=== PATIENT | male | born 1990 | race Caucasian/White ===

== ENCOUNTER 2017-01-29 12:35 | Emergency (ER) | payer BC ==
[2017-01-29 12:59] VITALS: BP 154/90
[2017-01-29] MEDS ORDERED: Penicillin V Potassium 500 MG Tab PO ONE (13:45)
[2017-01-29] MEDS ORDERED: Ketorolac 60 MG/2 ML SDV IM ONE (13:45)
--- NOTE | 2017-01-29 13:45 | EDM.PDOC ---
ED HPI GENERAL MEDICAL PROBLEM - General Chief Complaint: ENT Problem Stated Complaint: LEFT SIDE TOOTH PAIN POS INFECTION Time Seen by Provider: 01/29/17 13:25 Source of Information: Reports: Patient History Limitations: Reports: No Limitations - History of Present Illness INITIAL COMMENTS - FREE TEXT/NARRATIVE: Patient is a 26-year-old male who presents to the ED complaining of left upper tooth pain. Patient states approx. 2 days ago started having throbbing sensation to the affected tooth. States the tooth broke off approximately one month ago. States the discomfort is described as a throbbing sensation worsened with chewing, exposure to air, and hot/cold liquids. States he has been taking ibuprofen and Tylenol with no relief. He is seeing Dr. Wilkerson dentist and has plan for all his dental needs. They're aware of the fractured tooth and have a plan in place. There is no appointment scheduled since the patient has difficulty getting off of work.He denies any fever/chills, nausea/vomiting, swelling, or any additional complaints. Onset: Gradual Onset Date: 01/27/17 Duration: Constant, Getting Worse, Waxing/Waning Location: Reports: Other (mouth) Quality: Reports: Ache, Throbbing Severity: Moderate Improves with: Reports: None, Other (See HPI) Worsens with: Reports: Other (See HPI) Context: Reports: Other Associated Symptoms: Reports: No Other Symptoms Treatments [employer]ANT: Reports: Acetaminophen, NSAIDS Left Upper Oral/Mouth Pain Score (Numeric/FACES): 10 - Related Data Allergies Allergy/AdvReac Type Severity Reaction Status Date / Time No Known Allergies Allergy Verified 12/20/14 18:49 Home Meds: Home Meds Penicillin V Potassium 500 mg PO Q6HR #40 tab 01/29/17 [Rx] QUEtiapine Fumarate [Seroquel] 100 mg pe PO BID 01/29/17 [History] Sertraline HCl [Zoloft] 100 mg PO DAILY 01/29/17 [History] traMADol [Ultram] 50 mg PO Q6H PRN #5 tablet 01/29/17 [Rx] Past Medical History Psychiatric History: Reports: Anxiety, Depression - Past Surgical History HEENT Surgical History: Reports: Myringotomy w Tube(s) Other HEENT Surgeries/Procedures: wax build up in bilateral ears Social & Family History - Tobacco Use Smoking Status *Q: Current Every Day Smoker Years of Tobacco use: 10 Packs/Tins Daily: 1 - Caffeine Use Caffeine Use: Reports: None - Recreational Drug Use Recreational Drug Use: No Drug Use in Last 12 Months: Yes Recreational Drug Type: Reports: Marijuana/Hashish, Methamphetamine ED ROS ENT - Review of Systems Review Of Systems: ROS reveals no pertinent complaints other than HPI. ED EXAM, ENT - Physical Exam Exam: See Below Exam Limited By: No Limitations General Appearance: Alert, WD/WN, No Apparent Distress Ears: Normal Canal Nose: Normal Inspection Mouth/Throat: Normal Inspection, Normal Oropharynx, Other (significant dental decay throughout his mouth. Tooth affected is #16 tooth. Large filling present with part of the lateral aspect of the tooth fractured off. No swelling to the gum line noted. No swelling to the cheek noted. Increased pain with pressure to the tooth with a tongue depressor.) Head: Atraumatic, Normocephalic Neck: Normal Inspection, Supple, Non-Tender, Full Range of Motion Respiratory/Chest: No Respiratory Distress, Lungs Clear, Normal Breath Sounds, No Accessory Muscle Use, Chest Non-Tender Cardiovascular: Normal Peripheral Pulses, Regular Rate, Rhythm, No Murmur Extremities: Redness Neurological: Alert, Oriented, CN II-XII Intact, No Motor/Sensory Deficits Psychiatric: Normal Affect, Normal Mood Skin: Warm, Dry, Intact, Normal Color Course - Vital Signs Last Recorded V/S: Last Vital Signs Temp 98.7 F 01/29/17 12:55 Pulse 103 H 01/29/17 12:55 Resp 18 01/29/17 12:55 BP 154/90 H 01/29/17 12:55 Pulse Ox 100 01/29/17 12:55 - Orders/Labs/Meds Meds: Medications Discontinued Medications Generic Name Dose Route Start Last Admin Trade Name Freq PRN Reason Stop Dose Admin Ketorolac Tromethamine 60 mg 01/29/17 13:45 01/29/17 14:00 Toradol IM 01/29/17 13:46 Not Given ONETIME ONE Penicillin V Potassium 500 mg 01/29/17 13:45 01/29/17 14:00 Veetids PO 01/29/17 13:46 Not Given ONETIME ONE - Re-Assessments/Exams Free Text/Narrative Re-Assessment/Exam: Will perform posterior superior alveolar nerve block with bupuvicaine. Ordered toradol 60mg IM and pen vk 500mg PO. 1400 Patient refused nerve block, PCN, and toradol. States he has PCN at home from his dentist. This was not shared with me. Patient requests pain medications. Agreed to provide tramadol 50mg #5 tabs. He was instructed to call and make an appointment Dr. Wilkerson to be seen this week to provide definitive therapy. He was instructed that the does not provide narcotics on a regular basis for tooth pain. Understand he cannot get off work but narcotic medication medications are just a Band-Aid fix. Patient discharged home. Departure - Departure Time of Disposition: 14:01 Disposition: Home, Self-Care 01 Condition: good Clinical Impression: Pain due to dental caries - Discharge Information Prescriptions: Penicillin V Potassium 500 mg PO Q6HR #40 tab traMADol [Ultram] 50 mg PO Q6H PRN #5 tablet PRN Reason: Pain (Severe 7-10) Instructions: Dental Caries, [id number] Referrals: Hue Calderón PA-C [Primary Care Provider] - Forms: ED Department Discharge Additional Instructions: Take the penicillin as prescribed. Take ibuprofen and Tylenol in alternating fashion for pain. Refrain from any chewing on the affected side. Can utilize a fake feeling that can be purchased at a local pharmacy to reduce tooth nerve exposure to air in hopes of decreasing pain. Call Dr. Spencer Office tomorrow to arrange appt for definitive therapy. Return to the E.D. for fever/chills and swelling. For severe pain take tramadol 50mg every [address] or operating heavy equipment while taking tramadol. See your PCP for additional pain medications.
== END 2017-01-29 14:24 | disposition home or self-care (01) ==
LOC: JD.ED 12:35
DX: K02.9 Dental caries, unspecified (principal); Z79.899 Other long term (current) drug therapy; F41.9 Anxiety disorder, unspecified; F32.9 Major depressive disorder, single episode, unspecified; F17.210 Nicotine dependence, cigarettes, uncomplicated
CPT/HCPCS: 99283

== ENCOUNTER 2017-08-21 09:57 | Emergency (ER) | payer BC, MEDICAID ==
[2017-08-21] MEDS ORDERED: Acetaminophen/oxyCODONE 325-5 MG Tab PO ONE (10:51)
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
[2017-08-21 11:51] VITALS: BP 130/74
--- NOTE | 2017-08-21 12:31 | CR ---
Left knee: AP, lateral and sunrise patellar views of the left knee were obtained. Comparison: No prior study. Medial and lateral joint spaces are maintained in height. No joint effusion is seen. Patellofemoral joint appears within normal limits. Small well-corticated calcification is seen off the lateral patella believed to be incidental. Impression: 1. Small calcification off the lateral patella believed to be incidental. 2. Left knee exam is otherwise unremarkable. Diagnostic code #2
== END 2017-08-21 11:50 | disposition home or self-care (01) ==
LOC: JD.ED 09:57
DX: S80.02XA Contusion of left knee, initial encounter (principal); S00.83XA Contusion of other part of head, initial encounter; F17.210 Nicotine dependence, cigarettes, uncomplicated; W10.1XXA Fall (on)(from) sidewalk curb, initial encounter
CPT/HCPCS: 73562; 99284; A9270

== ENCOUNTER 2020-12-09 20:34 | Emergency (ER) | payer MEDICAID, OTHER ==
[2020-12-09 21:04] VITALS: BP 126/70; PULSE 92
[2020-12-09] MEDS ORDERED: Sodium Chloride 0.9% 1,000 ML IV ONE (21:20)
[2020-12-09] MEDS ORDERED: Ondansetron 4 MG/2 ML SDV IVPUSH ONE (21:20)
[2020-12-09] MEDS ORDERED: Loperamide 2 MG Cap PO STA (21:20)
--- NOTE | 2020-12-09 21:24 | EDM.PDOC ---
ED HPI GENERAL MEDICAL PROBLEM - General Chief Complaint: General Stated Complaint: BODY PAIN VOMITING Time Seen by Provider: 12/09/20 20:57 Source of Information: Reports: Patient History Limitations: Reports: No Limitations - History of Present Illness INITIAL COMMENTS - FREE TEXT/NARRATIVE: Mr. Rodriguez is a pleasant 30-year-old gentleman who now presents the ED stating that he developed generalized weakness with decreased appetite, followed by nausea, vomiting, watery diarrhea, and lower back pain last night, 12/08/2020. No urinary symptoms. No recent fever, although he has had cold sweats. No similarly ill close contacts. No recent bad tasting or spoiled food. No recent antibiotics. No recent travel. No prior similar symptoms. The patient did not take any [id number] or home remedies. The patient requested a note, as he did not go to work today. Here in the ED, the patient is found to be hemodynamically stable, afebrile, saturating 100% on room air. Prior to last night, the patient denies having a recent fever, chills, sore throat, ear pain, nasal or sinus congestion, cough, dyspnea, chest pain, palpitations, nausea, vomiting, constipation, diarrhea, abdominal pain, urinary symptoms, recent weight gain or weight loss, recent bloody bowel movements or black bowel movements, recent joint aches, headaches, or rashes. The patient does not have a PCP. He does not recall if he received an influenza vaccine this season, but declined an offer to get one here in the ED. Back Pain Score (Numeric/FACES): 8 - Related Data Allergies Allergy/AdvReac Type Severity Reaction Status Date / Time No Known Allergies Allergy Verified 12/09/20 21:04 Home Meds: Home Meds Mirtazapine [Remeron] 15 mg PO BEDTIME 12/09/20 [History] Ondansetron [Zofran ODT] 1 tab PO Q8H PRN #10 tab.dis 12/09/20 [Rx] Past Medical History Musculoskeletal History: Reports: Fracture (facial bones) Psychiatric History: Reports: Addiction (methamphetamine), Anxiety (untreated), Depression (untreated), PTSD (untreated) - Past Surgical History HEENT Surgical History: Reports: Myringotomy w Tube(s) (bilateral) Cardiovascular Surgical History: Reports: Other (See Below) (Unknown cardiac surgery as an ) Social & Family History - Tobacco Use Tobacco Use Status *Q: Current Every Day Tobacco User Years of Tobacco use: 17 Packs/Tins Daily: 1 Packs/Tins Daily Comment: Down from 2 ppd Tobacco Use Comment: Started smoking when 13 yrs old - Caffeine Use Caffeine Use: Reports: Coffee - Alcohol Use Alcohol Use History: No - Recreational Drug Use Recreational Drug Use: Yes Drug Use in Last 12 Months: No Recreational Drug Type: Reports: Methamphetamine (last snorted, smoked, injected 10/15/2017) - Living Situation & Occupation Living situation: Reports: Single, Alone Occupation: Employed (Hotel maintenance) ED ROS GENERAL - Review of Systems Review Of Systems: Comprehensive ROS is negative, except as noted in HPI. ED EXAM, GENERAL - Physical Exam Exam: See Below Exam Limited By: No Limitations General Appearance: Alert, WD/WN, No Apparent Distress Eye Exam: Bilateral Eye: EOMI, Normal Inspection Ears: Normal External Exam, Hearing Grossly Normal Nose: Normal Inspection Throat/Mouth: Normal Inspection, Normal Lips, Normal Voice, No Airway Compromise Head: Atraumatic, Normocephalic Neck: Normal Inspection, Full Range of Motion Respiratory/Chest: No Respiratory Distress, Lungs Clear, Normal Breath Sounds, No Accessory Muscle Use Cardiovascular: Normal Peripheral Pulses, Regular Rate, Rhythm, No Edema, No Gallop, No JVD, No Murmur, No Rub Peripheral Pulses: 3+: Radial (L), Radial (R) GI/Abdominal: Normal Bowel Sounds, Soft, Non-Tender, No Organomegaly, No Distention, No Abnormal Bruit, No Mass Back Exam: Normal Inspection, Full Range of Motion, NT Extremities: Normal Inspection, Normal Range of Motion, No Pedal Edema, Normal Capillary Refill Neurological: Alert, Oriented, Normal Cognition, No Motor/Sensory Deficits Psychiatric: Normal Affect Skin Exam: Warm, Dry, Intact, Normal Color, No Rash Course - Vital Signs Last Recorded V/S: Last Vital Signs Temp 36.8 C 12/09/20 20:59 Pulse 92 12/09/20 20:59 Resp 18 12/09/20 20:59 BP 126/70 12/09/20 20:59 Pulse Ox 100 12/09/20 20:59 - Orders/Labs/Meds Orders: Active Orders 24 hr Category Date Time Status Orthostatic Vital Signs [RC] STAT Care 12/09/20 21:19 Active CBC WITH MANUAL DIFF [HEME] Stat Lab 12/09/20 21:19 Ordered COMPREHENSIVE METABOLIC PN,CMP [CHEM] Stat Lab 12/09/20 21:19 Ordered COVID-19/FLU A+B [MOLEC] Stat Lab 12/09/20 21:20 Ordered MAGNESIUM [CHEM] Stat Lab 12/09/20 21:19 Ordered Sodium Chloride 0.9% [Normal Saline] 1,000 ml Med 12/09/20 21:20 Active IV ONETIME Medication Orders Sodium Chloride (Normal Saline) 1,000 mls @ 999 mls/hr IV ONETIME ONE Stop: 12/09/20 22:20 Meds: Medications Generic Name Dose Route Start Last Admin Trade Name Freq PRN Reason Stop Dose Admin Sodium Chloride 1,000 mls @ 999 mls/hr 12/09/20 21:20 Normal Saline IV 12/09/20 22:20 ONETIME ONE Discontinued Medications Generic Name Dose Route Start Last Admin Trade Name Freq PRN Reason Stop Dose Admin Loperamide HCl 4 mg 12/09/20 21:20 Loperamide 2 Mg Cap PO 12/09/20 21:21 ONETIME STA Ondansetron HCl 4 mg 12/09/20 21:20 Ondansetron 4 Mg/2 Ml Sdv IVPUSH 12/09/20 21:21 ONETIME ONE - Re-Assessments/Exams Free Text/Narrative Re-Assessment/Exam: 12/09/20 21:21 As above, the patient developed generalized weakness, nausea, vomiting, and body aches last night, which is persisted through today. No recent fever, although he has had cold sweats. His physical exam is completely unremarkable. I have ordered a work-up that includes orthostatics and several blood tests to make sure that there are no significant fluid or electrolyte shifts that need to be corrected, as well as a swab for the SARS-CoV-2 virus and influenza. In the meantime, the patient will be given IV fluid, IV Zofran, and, once his nausea is under control, oral loperamide. 12/09/20 21:47 Notified by Nabila ALICIA that the patient was refusing to have his blood drawn or receive an IV. I went and spoke to the patient, and he explained that he used to do IV methamphetamine, and was concerned that if he had an IV, or even be stuck for a blood draw, that that would cause him to restart using methamphetamine, which he did not want to do. He also didn't want to have the COVID-19/Influenza test. 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 Loperamide is available [id number]. The patient is to stay adequately hydrated with Gatorade or Powerade, and, since he has diarrhea, avoid juice or milk. Lastly, the patient will be given a note for work. Departure - Departure Time of Disposition: 21:49 Disposition: Home, Self-Care 01 Condition: Good Clinical Impression: Gastroenteritis - Discharge Information *PRESCRIPTION DRUG MONITORING PROGRAM REVIEWED*: Not Applicable *COPY OF PRESCRIPTION DRUG MONITORING REPORT IN PATIENT SHAVONNE: Not Applicable Referrals: PCP,None [Primary Care Provider] - Forms: ED Department Discharge, ED Return to Work/School Form Additional Instructions: You were seen in the emergency room after developing generalized weakness, decreased appetite, then nausea, vomiting, and diarrhea last night. A work-up, including blood tests and a swab for the SARS-CoV-2 virus and influenza was offered, but declined, along with treatment, including IV fluid and IV antinausea medicine. You were treated with oral antinausea medicine and oral anti-diarrhea medicine. A prescription for the antinausea medicine Zofran has been sent to the [facility], located just south and across the [address] from [facility]. You may dissolve 1 tablet of Zofran on your tongue up to every 8 hours, as needed for nausea/vomiting. You may take 1 tablet of [id number] loperamide (Imodium A-D) after each loose bowel movement, up to a maximum of 8 tablets within a 24-hour period. Be aware that you were given 2 tablets already in the ER. Stay adequately hydrated. Gatorade or Powerade are best. Because you have diarrhea, we recommend that you not drink juice or milk, as these may make your diarrhea worse. If you are hungry, we recommend a bland diet, such as rice, oatmeal, or toast. Chicken noodle soup with saltine crackers is an excellent choice. A note to be off work until Jim, 12/11/2020 has been provided to you. If any other problems, please do not hesitate to return to the ER. Sepsis Event Note (ED) - Evaluation Sepsis Screening Result: No Definite Risk - Focused Exam Vital Signs: Vital Signs Temp Pulse Resp BP Pulse Ox 12/09/20 20:59 36.8 C 92 18 126/70 100 - My Orders Last 24 Hours: My Active Orders 12/09/20 21:19 Orthostatic Vital Signs [RC] STAT CBC WITH MANUAL DIFF [HEME] Stat COMPREHENSIVE METABOLIC PN,CMP [CHEM] Stat MAGNESIUM [CHEM] Stat 12/09/20 21:20 COVID-19/FLU A+B [MOLEC] Stat Sodium Chloride 0.9% [Normal Saline] 1,000 ml IV ONETIME - Assessment/Plan Last 24 Hours: My Active Orders 12/09/20 21:19 Orthostatic Vital Signs [RC] STAT CBC WITH MANUAL DIFF [HEME] Stat COMPREHENSIVE METABOLIC PN,CMP [CHEM] Stat MAGNESIUM [CHEM] Stat 12/09/20 21:20 COVID-19/FLU A+B [MOLEC] Stat Sodium Chloride 0.9% [Normal Saline] 1,000 ml IV ONETIME
[2020-12-09] MEDS ORDERED: Ondansetron 4 MG Tab.DIS PO ONE (21:47)
== END 2020-12-09 22:05 | disposition home or self-care (01) ==
LOC: JD.ED 20:34
DX: K52.9 Noninfective gastroenteritis and colitis, unspecified (principal); Z72.0 Tobacco use
CPT/HCPCS: 99283; A9270

== ENCOUNTER 2021-03-21 14:10 | Emergency (ER) | payer MEDICAID, OTHER ==
[2021-03-21 14:20] VITALS: BP 148/84; PULSE 80
[2021-03-21] MEDS ORDERED: Lidocaine/EPINEPHrine/Tetracaine Soln 1 ML TOP ONE (14:27)
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
== END 2021-03-21 15:30 | disposition home or self-care (01) ==
LOC: JD.ED 14:10
DX: K13.0 Diseases of lips (principal); Z72.0 Tobacco use
CPT/HCPCS: 99283

== ENCOUNTER 2024-01-21 05:06 | Emergency (ER) | payer SELFPAY ==
[2024-01-21] MEDS ORDERED: Dexamethasone/Tobramycin 0.1-0.3% Ophth Susp 5 ML Bottle EYEBOTH SCH ×2 (05:45)
[2024-01-21 05:57] VITALS: BP 138/79; PULSE 76
== END 2024-01-21 05:50 | disposition home or self-care (01) ==
LOC: JD.ED 05:06
DX: H16.133 Photokeratitis, bilateral (principal)
CPT/HCPCS: 99282; 99283

== ENCOUNTER 2024-12-18 16:06 | Emergency (ER) | payer MEDICAID ==
[2024-12-18] MEDS: Diphtheria,Pertussis(Acell),Tetanus Vaccine 0.5 ML Syringe IM ONE (17:13)
[2024-12-18] MEDS: Lidocaine 1% 10 ML MDV INJECT ONE (17:14)
[2024-12-18] MEDS: Amoxicillin/Clavulanate K 875-125 MG Tab PO ONE (17:55)
[2024-12-18] MEDS: Ketorolac 60 MG/2 ML SDV IM ONE (17:55)
[2024-12-18 18:03] VITALS: BP 126/79; PULSE 76
== END 2024-12-18 18:00 | disposition home or self-care (01) ==
LOC: JD.ED 16:06
DX: S69.91XA Unspecified injury of right wrist, hand and finger(s), initial encounter (principal); W29.4XXA Contact with nail gun, initial encounter; Z88.1 Allergy status to other antibiotic agents
CPT/HCPCS: 12001; 73140; 90471; 90715; 96372; 99283; A9270; J1885; J2003; 99282

== ENCOUNTER 2025-06-19 09:33 | Emergency (ER) | payer MEDICAID ==
[2025-06-19 10:36] VITALS: BP 148/87; PULSE 89
== END 2025-06-19 10:36 | disposition home or self-care (01) ==
LOC: JD.ED 09:33
DX: S81.851A Open bite, right lower leg, initial encounter (principal); F17.210 Nicotine dependence, cigarettes, uncomplicated; Z79.899 Other long term (current) drug therapy; W54.0XXA Bitten by dog, initial encounter; Y93.89 Activity, other specified
CPT/HCPCS: 99283